=== PATIENT | female | born 1995 | race Hispanic/Latino ===

== ENCOUNTER 2024-12-15 17:14 | Emergency (ER) | payer OTHER ==
[~2024-12-15] VITALS: Ht 160 cm; Wt 79.4 kg
[2024-12-15 17:17] VITALS: PULSE 83; RESP 18; TEMP 98.6
[2024-12-15 18:31] VITALS: BP 137/84; PULSE 83; RESP 18; TEMP 98.6; O2SAT 99
== END 2024-12-15 18:33 | disposition home or self-care (01) ==
LOC: FSED 17:20
DX: R07.89 Other chest pain (principal); R09.1 Pleurisy
CPT/HCPCS: 84484; 99283